=== PATIENT | female | born 1965 | race Caucasian/White ===

== ENCOUNTER 2022-06-26 06:25 | Day surgery (SDC) | payer MEDICAID, MEDICARE ==
[2022-06-26] MEDS ORDERED: fentaNYL 100 MCG/2 ML SDV ONE (07:14)
[2022-06-26] MEDS ORDERED: Midazolam 1 MG/ML 2 ML SDV ONE (07:14)
[2022-06-26] MEDS ORDERED: Propofol 200 MG/20 ML SDV ONE (07:14)
[2022-06-26] MEDS ORDERED: Cyanocobalamin (Vitamin B12) 1,000 MCG/ML SDV IM ONE (07:15)
[2022-06-26] MEDS ORDERED: Lactated Ringers 1,000 ML IV SCH (08:15)
[2022-06-26] MEDS ORDERED: Glycopyrrolate 0.2 MG/ML 2 ML SDV IVPUSH ONE (08:30)
[2022-06-26] MEDS ORDERED: MVI, Adult with Vitamin K 10 ML, Thiamine 200 MG, Zinc/Copper/Manganese/Selenium 1 ML i... IV ONE ×4 (09:15)
[2022-06-26] MEDS ORDERED: Pantoprazole 40 MG Vial IVPUSH ONE (10:01)
[2022-06-26 11:03] VITALS: BP 105/58; PULSE 81
== END 2022-06-26 12:40 | disposition home or self-care (01) ==
LOC: JP.SDS 06:25
PROVIDERS: ATTEND Surgery
DX: K29.70 Gastritis, unspecified, without bleeding (principal); K20.90 Esophagitis, unspecified without bleeding; T18.2XXA Foreign body in stomach, initial encounter; R13.10 Dysphagia, unspecified; E86.0 Dehydration; Z98.84 Bariatric surgery status
CPT/HCPCS: 43239; 43247; 87081; C9113; J2250; J2704; J3010; J3411; J3420; J3490; J7120